=== PATIENT | male | born 1980 | race Caucasian/White ===

== ENCOUNTER 2016-10-15 13:35 | Emergency (ER) | payer OTHER ==
[~2016-10-15] VITALS: Ht 188 cm; Wt 106.4 kg
[2016-10-15 14:37] LABS: CHLORIDE 103 mEq/L (99-109); POTASSIUM 5.3 mEq/L (3.7-5.4); SODIUM 138 mEq/L (136-147)
[2016-10-15 14:39] LABS: GLUCOSE 137 mg/dL (70-99)
[2016-10-15 14:41] LABS: ANION GAP 11 MEQ/L (2-14)
[2016-10-15 14:43] LABS: GFR ESTIMATE (CALCULATED) 57 mL/min/
[2016-10-15 14:44] LABS: UREA NITROGEN (BUN) 18 mg/dL (9-23)
[2016-10-15] MEDS ORDERED: NARCAN4 MG NS (15:25)
[2016-10-15 15:29] LABS: AMPHETAMINE NEGATIVE (500 ng/mL); BARBITURATES NEGATIVE (200 ng/mL); BENZODIAZEPINES NEGATIVE (150 ng/mL); COCAINE NEGATIVE (150 ng/mL); INTERNAL CONTROLS VALID? YES; METHADONE NEGATIVE (200 ng/mL); METHAMPHETAMINE NEGATIVE (500 ng/mL); OPIATES (MORPHINE) PRESUMPTIVE POSITIVE (100 ng/mL); OXYCODONE NEGATIVE (100 ng/mL); PHENCYCLIDINE NEGATIVE (25 ng/mL); PROPOXYPHENE NEGATIVE (300 ng/mL); THC CANNABINOIDS NEGATIVE (50 ng/mL); TRICYCLIC ANTIDEPRESSANTS NEGATIVE (300 ng/mL)
[2016-10-15 15:30] LABS: ADD MEDTOX COMMENT Y
[2016-10-15 16:20] LABS: HEMATOCRIT 46.4 % (38.0-50.0); MCH 27.8 PG (29.0-34.0); MCHC 32.8 G/DL (30.0-36.0); RBC DIS.WIDTH-CV 13.2 % (11.8-14.6); RBC DIS.WIDTH-SD 40.7 % (39-53); RED BLOOD COUNT 5.46 M/uL (4.00-5.50); WHITE BLOOD COUNT 7.7 K/uL (4.1-10.2)
[2016-10-15 17:19] LABS: EOSINOPHIL (%) 0 % (0-5); HEMATOCRIT 43.7 % (38.0-50.0); IMMATURE GRANULOCYTE (%) 0.7 % (0.0-0.7); IMMATURE GRANULOCYTE COUNT 0.1 K/uL; INSTRUMENT ABS NEUTROPHIL CT 12.5 K/uL; LYMPHOCYTE COUNT 1.4 K/uL (1.0-2.8); MCH 27.9 PG (29.0-34.0); MCHC 32.7 G/DL (30.0-36.0); MCV 85.2 FL (86-99); MONOCYTE (%) 6.5 % (3-12); NEUTROPHIL (%) 83.1 % (45-76); NEUTROPHIL COUNT 12.5 K/uL (1.8-6.4); PLATELET COUNT 304 K/uL (156-360); RBC DIS.WIDTH-CV 13.2 % (11.8-14.6); RBC DIS.WIDTH-SD 41.2 % (39-53); RED BLOOD COUNT 5.13 M/uL (4.00-5.50)
[2016-10-15 17:26] LABS: PLATELET COUNT 2 K/uL (156-360)
[2016-10-15 17:57] LABS: IMM.PLATELET FRACTION 8.3 (1-7)
[2016-10-15 18:01] VITALS: BP 130/89
== END 2016-10-15 18:07 | disposition home or self-care (01) ==
LOC: EME 13:35
PROVIDERS: Emergency Medicine
DX: T40.1X1A Poisoning by heroin, accidental (unintentional), initial encounter (principal); R40.20 Unspecified coma; R23.0 Cyanosis; Y92.810 Car as the place of occurrence of the external cause; F11.10 Opioid abuse, uncomplicated; F17.200 Nicotine dependence, unspecified, uncomplicated
CPT/HCPCS: 80048; 84999; 85025; 85027; 99281; 99283; J2310